=== PATIENT | female | born 1975 | race Caucasian/White ===

== ENCOUNTER 2017-11-22 21:11 | Inpatient (IN) | payer SELFPAY ==
[~2017-11-22] VITALS: Ht 165.1 cm; Wt 71.0 kg
[2017-11-22 21:24] VITALS: BP 123/75; PULSE 47; RESP 16; TEMP 98; O2SAT 95
[2017-11-22] MEDS ORDERED: ONDANSETRON ODT 4 MG TAB PO ONE (21:45)
[2017-11-22] MEDS ORDERED: oxyCODONE/ACETAMINOPHEN 5 MG/325 MG TAB PO ONE (21:45)
--- NOTE | 2017-11-22 22:00 | PD ---
HPI . Right tib-fib fracture Chief Complaint: Fall Time Seen by Provider: 21:44 Travel History International Travel<30 days: No Contact w/Intl Traveler<30days: No Traveled to known affect area: No History of Present Illness HPI Patient was walking and tripped on a loose board and twisted and got her leg stuck and went to [facility] where she was discovered to have a acute comminuted distal tib-fib fracture apparently they wanted to transfer her for orthopedic and trauma to our hospital Dr. De Anda took the call accepted the transfer and the patient is Dr. Morales was made aware as I was informed by Dr. De Anda. Patient has no significant past medical history except possible diagnosis of lupus but is on no medication she had a history of a breast biopsy for a cyst that was benign otherwise she is normal healthy Kinyar[place]-speaking only complaint is tenderness pain in her distal right ankle she has normal cap refill in the toes moving her toes without complication she is in a splint posterior short leg splint pain local no radiation it happened at 3 pm today PFSH Past Medical History Diminished Hearing: No Medical other: Yes (LUPUS) Tetanus Vaccination: Unknown Influenza Vaccination: No ?: Not Past Surgical History Surgical History: No Previous Surgery Other Surgery: Yes (CYST REMOVED FROM LEFT BREAST) Social History Alcohol Use: No Tobacco Use: No Substance Use: No Allergies-Medications (Allergen,Severity, Reaction): Coded Allergies: No Known Allergies (Verified Allergy, Unknown, 11/22/17) Reported Meds & Prescriptions Reported Meds & Active Scripts Active Review of Systems Except as stated in HPI: all other systems reviewed are Neg Musculoskeletal: Positive: Myalgias, Arthralgias Physical Exam Narrative GENERAL: pt is in mild discomfort SKIN: Warm and dry. HEAD: Atraumatic. Normocephalic. EYES: Pupils equal and round. No scleral icterus. No injection or drainage. ENT: No nasal bleeding or discharge. Mucous membranes pink and moist. NECK: Trachea midline. No JVD. CARDIOVASCULAR: Regular rate and rhythm. RESPIRATORY: No accessory muscle use. Clear to auscultation. Breath sounds equal bilaterally. GASTROINTESTINAL: Abdomen soft, non-tender, nondistended. Hepatic and splenic margins not palpable. MUSCULOSKELETAL: Extremities--> Right ankle is splinted short leg cast has Tib fib fracture on report, toes <2sec cap refill FROM toes normal limits.. PSYCHIATRIC: Appropriate mood and affect; insight and judgment normal. Data Data Last Documented VS Vital Signs Date Time Temp Pulse Resp B/P (MAP) Pulse Ox O2 Delivery O2 Flow Rate FiO2 11/22/17 23:10 64 18 133/72 (92) 98 Room Air 11/22/17 21:24 98.0 Orders Orders Oxycodone-Acetamin 5-325 Mg (Percocet (11/22/17 21:45) Ondansetron Odt (Zofran Odt) (11/22/17 21:45) NPO (11/22/17 22:08) Ct Tib/Fib W/O Iv Contrast (11/22/17 ) Sodium Chlor 0.9% 1000 Ml Inj (Ns 1000 M (11/22/17 23:00) Metoclopramide Inj (Reglan Inj) (11/22/17 23:00) Consult Orthopedic (11/22/17 ) Admit To Inpatient (11/22/17 ) Vital Signs (Adult) Q4H (11/22/17 23:12) Activity Oob With Assistance (11/22/17 23:12) Sodium Chloride 0.9% Flush (Ns Flush) (11/22/17 23:15) Sodium Chloride 0.9% Flush (Ns Flush) (11/23/17 09:00) Acetaminophen (Tylenol) (11/22/17 23:15) Scd Bilateral/Knee High VIVIAN.BID (11/22/17 23:12) Naloxone Inj (Narcan Inj) (11/22/17 23:15) Magnesium Hydroxide Liq (Milk Of Magnesi (11/22/17 23:15) Sennosides (Senokot) (11/22/17 23:15) Bisacodyl Supp (Dulcolax Supp) (11/22/17 23:15) Lactulose Liq (Lactulose Liq) (11/22/17 23:15) Inpatient Certification (11/22/17 ) Acetamin-Hydrocod 325-7.5 Mg ([place] 7.5 (11/22/17 23:15) Ondansetron Odt (Zofran Odt) (11/22/17 23:15) MDM Medical Decision Making Medical Screen Exam Complete: Yes Emergency Medical Condition: Yes Medical Record Reviewed: Yes (transfer info from [facility]) Differential Diagnosis fractured tib fib, as well as other possible injury to arms hands wrist other leg , xrays done at other hospital prior to transfer Narrative Course Dr De Anda accepted trauma transfer but on pt arrival to ER he feels it is appropriate for othero consult and orthotics prosthetics assistant splint tonight and admit for hepas for OR in AM . I speak to the Ortho PA for Dr Morales and they want a CT for lower extremity and admit and NPO Diagnosis Primary Impression: Tibia/fibula fracture Qualified Codes: S82.201A - Unspecified fracture of shaft of right tibia, initial encounter for closed fracture; S82.401A - Unspecified fracture of shaft of right fibula, initial encounter for closed fracture Scripts Wheelchair Elevated Leg (Wheelchair Elevated Leg) 1 Mis Mis EA .XX DIRECTED, #1 0 Refills Prov: Juventino Sterling Jr. 11/23/17 Walker with Front Wheels (Walker with Front Wheels) 1 Mis Mis EA .XX DIRECTED, #1 0 Refills Prov: Juventino Sterling Jr. 11/23/17 Hydrocodone-Acetaminophen (Hydrocodone-Acetaminophen) 10-325 mg Tab 1 TAB PO Q4H Y for PAIN, #50 TAB 0 Refills Prov: Juventino Sterling Jr. 11/23/17 Vargas Mason MD November 22, 2017 22:00
[2017-11-22] MEDS ORDERED: METOCLOPRAMIDE INJ 10 MG in SODIUM CHLORIDE 0.9% INJ 50 ML IV ONE (23:00)
[2017-11-22] MEDS ORDERED: SODIUM CHLOR 0.9% 1000 ML INJ 1,000 ML IV ONE (23:00)
[2017-11-22 23:10] VITALS: BP 133/72; PULSE 64; RESP 18; O2SAT 98
[2017-11-22] MEDS ORDERED: ACETAMINOPHEN 325 MG TAB PO PRN (23:15)
[2017-11-22] MEDS ORDERED: LACTULOSE SYRUP 20 GM/30 ML CUP PO PRN (23:15)
[2017-11-22] MEDS ORDERED: BISACODYL 10 MG SUPP RECTAL PRN (23:15)
[2017-11-22] MEDS ORDERED: SODIUM CHLORIDE 0.9% FLUSH 10 ML FLUSH IV FLUSH PRN (23:15)
[2017-11-22] MEDS ORDERED: ONDANSETRON ODT 4 MG TAB PO PRN (23:15)
[2017-11-22] MEDS ORDERED: NALOXONE HCL 0.4 MG/ML AMP IV PUSH PRN (23:15)
[2017-11-22] MEDS ORDERED: MAGNESIUM HYDROXIDE SUSP 30 ML CUP PO PRN (23:15)
[2017-11-22] MEDS ORDERED: SENNOSIDES 8.6 MG TAB PO PRN (23:15)
--- NOTE | 2017-11-22 23:58 | HHI.HP ---
[facility] Service [facility] Primary Care Physician Unknown Admission Diagnosis FRACTURED TIB FIB NEEDS OR Nitesh Diagnoses: Chief Complaint: Fall and right leg pain Travel History International Travel<30 Days: No Contact w/Intl Traveler <30 Da: No Traveled to Known Affected Are: No History of Present Illness Ms. Fagan is a pleasant 42-year-old female with no significant medical history who presents to the emergency department due to a fall and subsequent pain in her right lower extremity. Patient tripped and fell and sustained right ankle pain. She did not have any chest pain, lightheadedness or dizziness prior to her fall. Imaging studies indicated right tib-fib fracture. Dr. Morales has been consulted for possible surgical intervention in the morning. Patient denies any cough, abdominal pain, fever or chills. Review of Systems Except as stated in HPI: all other systems reviewed are Neg Past Family Social History Past Medical History No significant medical history Past Surgical History Cyst removed from left breast. No other major surgical intervention. Reported Medications Does not take any medications on a regular basis Allergies: Coded Allergies: No Known Allergies (Verified Allergy, Unknown, 11/22/17) Family History No family history of heart disease, cancer. Social History Denies using tobacco, alcohol, illicit drugs. Physical Exam Vital Signs Vital Signs Date Time Temp Pulse Resp B/P (MAP) Pulse Ox O2 Delivery O2 Flow Rate FiO2 11/22/17 23:10 64 18 133/72 (92) 98 Room Air 11/22/17 22:10 18 18 98 Room Air 11/22/17 21:24 98.0 47 16 123/75 (91) 95 Room Air Physical Exam GENERAL: This is a well-nourished, well-developed patient, in no apparent distress. SKIN: No rashes, ecchymoses or lesions. Warm and dry. HEAD: Atraumatic. Normocephalic. No temporal or scalp tenderness. EYES: Pupils equal round and reactive. No injection or drainage. ENT: Nose without bleeding, purulent drainage or septal hematoma. Airway patent. NECK: Trachea midline. No lymphadenopathy. Supple, nontender, no meningeal signs. CARDIOVASCULAR: Regular rate and rhythm without murmurs, gallops, or rubs. No JVD. RESPIRATORY: Clear to auscultation. Breath sounds equal bilaterally. No wheezes , rales, or rhonchi. GASTROINTESTINAL: Abdomen soft, non-tender, nondistended. No guarding. MUSCULOSKELETAL: Extremities without clubbing, cyanosis, or edema. Right lower extremity splint in place. Able to move all toes. NEUROLOGICAL: Awake and alert. Cranial nerves II through XII intact. No focal neurological deficits. Normal speech. Imaging Last Impressions Lower Extremity CT 11/22/17 0000 Signed Impressions: CONCLUSION: 1. Comminuted fracture the distal tibia with extension into the ankle joint. 2. Comminuted fracture the distal fibular shaft. Caprini VTE Risk Assessment Caprini VTE Risk Assessment: Mod/High Risk (score >= 2) Caprini Risk Assessment Model Point Value = 1 Point Value = 2 Point Value = 3 Point Value = 5 Age 41-60 Minor surgery BMI > 25 kg/m2 Swollen legs Varicose veins or History of unexplained or recurrent spontaneous Oral contraceptives or hormone replacement Sepsis (< 1 month) Serious lung disease, including pneumonia (< 1 month) Abnormal pulmonary function Acute myocardial infarction Congestive heart failure (< 1 month) History of inflammatory bowel disease Medical patient at bed rest Age 61-74 Arthroscopic surgery Major open surgery (> 45 min) Laparoscopic surgery (> 45 min) Malignancy Confined to bed (> 72 hours) Immobilizing plaster cast Central venous access Age >= 75 History of VTE Family history of VTE Factor V Leiden Prothrombin [id number] Lupus anticoagulant Anticardiolipin antibodies Elevated serum homocysteine Heparin-induced thrombocytopenia Other congenital or acquired thrombophilia Stroke (< 1 month) Elective arthroplasty Hip, pelvis, or leg fracture Acute spinal cord injury (< 1 month) Prophylaxis Regimen Total Risk Factor Score Risk Level Prophylaxis Regimen 0-1 Low Early ambulation 2 Moderate Order ONE of the following: *Sequential Compression Device (SCD) *Heparin 5000 units SQ BID 3-4 Higher Order ONE of the following medications: *Heparin 5000 units SQ TID *Enoxaparin/Lovenox 40 mg SQ daily (WT < 150 kg, CrCl > 30 mL/min) *Enoxaparin/Lovenox 30 mg SQ daily (WT < 150 kg, CrCl > 10-29 mL/min) *Enoxaparin/Lovenox 30 mg SQ BID (WT < 150 kg, CrCl > 30 mL/min) AND/OR *Sequential Compression Device (SCD) 5 or more Highest Order ONE of the following medications: *Heparin 5000 units SQ TID (Preferred with Epidurals) *Enoxaparin/Lovenox 40 mg SQ daily (WT < 150 kg, CrCl > 30 mL/min) *Enoxaparin/Lovenox 30 mg SQ daily (WT < 150 kg, CrCl > 10-29 mL/min) *Enoxaparin/Lovenox 30 mg SQ BID (WT < 150 kg, CrCl > 30 mL/min) AND *Sequential Compression Device (SCD) Assessment and Plan Problem List: (1) Tibia/fibula fracture ICD Code: S82.209A - Unspecified fracture of shaft of unspecified tibia, initial encounter for closed fracture; S82.409A - Unspecified fracture of shaft of unspecified fibula, initial encounter for closed fracture Status: Acute Assessment and Plan Ms. Fagan is a 42-year-old female with a significant medical history who presented to the emergency department after a trip and fall incident where she sustained a distal right-sided tib-fib fracture. Orthopedic surgery was consulted. Right-sided tib-fib fracture -Orthopedic surgery consulted. N.p.o. midnight for surgical intervention in the morning. Acetaminophen, [place] for pain. Full code. SCDs. Pharmacological DVT prophylaxis after surgery if prolonged hospitalization is expected. Physician Certification 2 Midnight Certification Type: Admission for Inpatient Services Order for Inpatient Services The services are ordered in accordance with Medicare regulations or non- Medicare payer requirements, as applicable. In the case of services not specified as inpatient-only, they are appropriately provided as inpatient services in accordance with the 2-midnight benchmark. Estimated LOS (days): 2 days is the estimated time the patient will need to remain in the hospital, assuming treatment plan goals are met and no additional complications. Post-Hospital Plan: Carson Bruno DO November 22, 2017 11:58 pm
[2017-11-23] VITALS (7 sets, daily range): BP systolic 99–156; BP diastolic 56–73; PULSE 55–90; RESP 18; TEMP 97.5–98.5; O2SAT 94–99
--- NOTE | 2017-11-23 00:10 | RADRPT ---
EXAM DATE: 11/22/2017 11:40 PM EDT AGE/SEX: 42 years / Female INDICATIONS: Trauma, fall off curb. CLINICAL DATA: This is the patient's initial encounter. Patient reports that signs and symptoms have been present for 1 day and indicates a pain score of 10/10. MEDICAL/SURGICAL HISTORY: None. None. RADIATION DOSE: 10.91 CTDI (mGy) COMPARISON: No prior [facility] exams available for comparison. TECHNIQUE: Multiple contiguous axial images were acquired using a multirow detector CT scanner witho ut contrast. Multiplanar reconstruction was performed in the sagittal and coronal planes. Using aut omated exposure control and adjustment of the mA and/or kV according to patient size, radiation dose was kept as low as reasonably achievable to obtain optimal diagnostic quality images. FINDINGS: There is comminuted fracturing of the distal tibia and fibula. The main distal tibial frag ment is angulated dorsally. There is a component of this fracture that extends vertically into the an terior aspect of the distal tibia into the ankle joint. There is some medial displacement of the dist al anterior medial fragment at the distal tibia. The displacement in the order of 4 mm. The medial ma lleolus appears intact. The posterior malleolus is intact. The distal fibular fracture primarily invo lves the fibular shaft. The main distal fibular shaft is displaced posteriorly. The metaphyseal regio n and distal aspect of the lateral malleolus are intact. The ankle joint is normally aligned. CONCLUSION: 1. Comminuted fracture the distal tibia with extension into the ankle joint. 2. Comminuted fracture the distal fibular shaft. Electronically signed by: Naeem Neff MD 11/23/2017 12:08 AM EDT
[2017-11-23] MEDS: ACETAMINOPHEN/HYDROcodone 325 MG/7.5 MG TAB PO PRN ×3 (04:36→18:28)
--- NOTE | 2017-11-23 06:43 | PD.ORT.PN ---
Subjective Subjective Remarks Patient had a mechanical fall from a trailer as she stepped down and missed step. She rolled her ankle and had significant pain and was unable to ambulate. No other orthopedic complaints. She is transferred in for fracture management by Dr. Morales for her right tibial pilon. (Juventino Sterling Jr.) Objective Vitals Vital Signs Date Time Temp Pulse Resp B/P (MAP) Pulse Ox O2 Delivery O2 Flow Rate FiO2 11/23/17 02:45 98.5 78 18 115/70 (85) 99 Room Air 11/22/17 23:10 64 18 133/72 (92) 98 Room Air 11/22/17 22:10 18 18 98 Room Air 11/22/17 21:24 98.0 47 16 123/75 (91) 95 Room Air I/O 11/22/17 11/22/17 11/22/17 11/23/17 11/23/17 11/23/17 07:00 15:00 23:00 07:00 15:00 23:00 Intake Total 2154 ml Output Total 270 ml Balance 1884 ml Intake IV Total 2154 ml Output Urine Total 250 ml Emesis 20 ml # Voids 1 (Juventino Sterling Jr.) Imaging Last 72 hours Impressions Lower Extremity CT 11/22/17 0000 Signed Impressions: CONCLUSION: 1. Comminuted fracture the distal tibia with extension into the ankle joint. 2. Comminuted fracture the distal fibular shaft. Objective Remarks Bilateral upper extremities: Full range of motion neurovascularly intact Left lower extremity: Full range of motion and neurovascularly intact Right lower extremity: No pain with hip or knee range of motion. Ankle is splinted. She has intact sensation in all toes with good capillary refills. (Juventino Sterling Jr.) Assessment & Plan Assessment and Plan Right distal tibia and fibula fractures She does not speak Indian. Her is able to translate n.p.o. Surgery this morning for reduction of right distal tibia and external fixation. Swelling is too great for surgical fixation of tibial pilon fracture. We will stage this in 2 separate procedures. Once external fixation and reduction is achieved we will wait for swelling to improve and once it has we will proceed with open reduction internal fixation of the right ankle. It will more than likely take 5-7 days until it is ready for the second surgery. Once external fixation is achieved, remaining at the hospital versus discharge to home and following up in office will be assessed. Sign consents (Juventino Sterling Jr.) Assessment and Plan POD 0 s/p Exfix right distal tibia stable in PACU -NWB -elevate -pin care BID -ortho cleared for DC home on sunday if doing well -f/u in 5-7 days in office for re-eval of surgical fixation with dr Morales (Ayan Garza/Motor Analyst PA) Juventino Sterling Jr. November 23, 2017 06:42 Ayan Garza/Motor Analyst PA November 23, 2017 08:50
[2017-11-23] MEDS ORDERED: HYDR-3583 PO (06:44)
[2017-11-23] MEDS ORDERED: WALKER WHEELS/F1 MIS (06:46)
[2017-11-23] MEDS ORDERED: WHEEMIS3 (06:46)
[2017-11-23] MEDS ORDERED: ceFAZolin INJ 1,000 MG VIAL ONE (06:57)
--- NOTE | 2017-11-23 07:15 | MB ---
cc: Charles Morales MD DATE: 11/23/2017 REASON FOR CONSULTATION: Right distal tibia fracture. HISTORY OF PRESENT ILLNESS: Charlene is a 42-year-old female who lives over near [place]. She was stepping off a trailer. She misjudged the height of the trailer and landed awkwardly on her right leg. She had immediate right ankle pain and swelling. She presented to [facility] first. X-rays revealed intraarticular right distal tibia and fibula fractures. She was subsequently transferred to [place] for definitive treatment of these injuries. She complains only of right ankle pain. The pain is worse with movement and is improved with rest. She denies dizziness, syncope or loss of consciousness. Her is at bedside. Her is fluent in both Kittitian and Belarusian and is assisting with translation. PAST MEDICAL HISTORY: Illnesses: None. SURGERIES: Left breast cyst removal. MEDICATIONS: No medications prior to admission. ALLERGIES: NO KNOWN DRUG ALLERGIES. FAMILY HISTORY: Noncontributory. She denies any history of heart disease or problems with anesthesia. SOCIAL HISTORY: The patient lives with her . She denies alcohol, tobacco or drug use. REVIEW OF SYSTEMS: The patient denies headache, visual changes, neck pain, chest pain, shortness of breath, abdominal pain, nausea, vomiting, recent weight loss, fever of chills. No ____ extremities or bowel or bladder incontinence. She complains of right ankle pain. The pain is worse with movement. LABORATORY DATA: She does not have any labs. IMAGING: CT scan of the right ankle was reviewed. CT scan reveals an intra-articular displaced right distal tibia and fibula fracture. PHYSICAL EXAMINATION: GENERAL: The patient is a well-developed, well-nourished, 42-year-old female. She is awake and alert. She appears well developed, well nourished. She is in no acute distress. VITAL SIGNS: Temperature 98.5, pulse 90, respirations 18, blood pressure 109/60, O2 saturation 96% on room air. HEENT: Head: The patient is normocephalic, atraumatic. Pupils are equal. NECK: Soft, nontender. The trachea is midline. ABDOMEN: Soft, nontender, nondistended. EXTREMITIES: Examination of bilateral upper extremities reveals no pain with shoulder, elbow or wrist motion bilaterally. Skin is intact to both hands: Radial pulses are palpable. Sensation is intact in all fingers. Examination of left leg reveals no pain with hip, knee or ankle motion. Skin is intact. Dorsalis pedis pulses palpable. Examination of right leg reveals no pain with hip or knee motion. She has moderate swelling of the ankle. She is tender to palpation over the distal tibia and fibula. Skin is intact. She has good capillary refill in her toes. IMPRESSION: Right distal tibia and fibula intraarticular fractures. PLAN: Treatment options were discussed with the patient and her . At this point, I would recommend a staged procedure. I would recommend closed reduction and external fixation of her right ankle today. She will need delayed open reduction and internal fixation once swelling has resolved. Risks of surgery include bleeding, infection, injuries to arteries, nerves or blood vessels; nonunion, malunion, painful hardware, wound complications, as well as medical complications including blood clot, stroke, heart attack and . All questions were answered. I will plan on surgery today. A mid-level provider in my office, nurse practitioner or PA, may see this patient on a follow-up basis and continue to implement the objective of this plan including: Starting or adjusting medications, injections of muscle, tendon, bursa or joints, cast application, orthotic or brace application, physical therapy, further radiographic studies including x-ray, MRI, CT, ultrasounds or bone scan, vascular studies, neurologic studies, or other specialist consultations, and proceeding with surgical management as appropriate. MD TAMY Goddard/AMBROSIO , 06:49 AM , 07:15 AM
[2017-11-23] MEDS ORDERED: VANCOMYCIN 1 GM/200 ML INJ 200 ML IV ONE (07:18)
[2017-11-23] MEDS: LACTATED RINGER'S 1000 ML INJ 1,000 ML IV SCH ×2 (08:02→20:32)
[2017-11-23] MEDS ORDERED: ACETAMINOPHEN 1000 MG/100 ML 100 ML IV ONE (08:03)
--- NOTE | 2017-11-23 08:06 | PD.OP ---
cc: Charles Reyes MD Operative Report Date of Surgery: November 23, 2017 Preoperative Diagnosis: Displaced right distal tibia and fibula intra-articular fractures Postoperative Diagnosis: Procedure: Closed reduction with an ablation of right distal tibia and fibula fractures, external fixation right ankle Surgeon: Charles Reyes Seedling Sorter(s): MINISTERIO Steward PA-C The surgical procedure was assisted by my physician assistant to the director. My P.A. presence was necessary throughout this case for the manipulation and positioning of the surgical extremity. My P.A. was assisting me throughout the duration of this procedure. The skill set of a physician assistant to the director was medically necessary to complete this procedure. During the surgical case the surgical assist was working at the back table and the physician assistant to the director was directly assisting me. Operation and Findings: This patient sustained an injury resulting in unstable fractures of the right distal tibia and fibula. Patient was seen and evaluated preoperatively and found to have too much swelling to proceed with open reduction internal fixation. Risk and benefits of surgery were discussed in depth with patient and informed consent was confirmed. Surgical site was marked. Patient was brought to operating room and placed on the OR table. Patient was given IV sedation and GETA. Patient received IV antibiotics and timeout procedure was performed. Operative leg was prepped with alcohol followed by Hibiclens and draped in the usual sterile fashion.resulting in left tibia-fibula fractures. Timeout procedure was performed. The procedure began with placement of external fixation. Two percutaneous incisions were made over the tibia. Pin sites were pre-drilled. Synthes CHIU- coated pins were placed from anterior to posterior in the tibia shaft. An additional transfixion pin was placed through the calcaneus. Pins were also placed in the first and fifth metatarsals. An external fixator was now constructed. Fluoroscopy was used to confirm appropriate pin placement Next attention was turned to traction with manipulation of the leg. The fracture was manipulated under fluoroscopy. Excellent reduction was achieved. With the fracture held in reduced position, the external fixator was tightened. Fluoroscopy confirmed a well-placed external fixation with well-aligned fractures. Sterile dressings were applied. The patient was awakened and transferred to Recovery in stable condition. The soft tissue was reevaluated. Patient did have swelling around the ankle and calf but compartments were soft and compressible with no signs of compartment syndrome. Charles Reyes MD November 23, 2017 08:06
[2017-11-23] MEDS ORDERED: ONDANSETRON ODT 4 MG TAB PO PRN (08:15)
[2017-11-23] MEDS ORDERED: Post-op Orders (for Pharmacy) XX ONE (08:15)
[2017-11-23] MEDS ORDERED: diphenhydrAMINE HCL 25 MG CAP PO PRN (08:15)
[2017-11-23] MEDS ORDERED: ACETAMINOPHEN/HYDROcodone 325 MG/7.5 MG TAB PO PRN (08:15)
[2017-11-23] MEDS ORDERED: MORPHINE SULFATE 4 MG/ML INJ IV PUSH PRN (08:15)
[2017-11-23] MEDS ORDERED: *morphine SULFATE 8 MG/ML PERIprocedure ONLY ONE ×3 (08:38→09:05)
[2017-11-23] MEDS ORDERED: DO NOT ADM ANY ANTICOAGULANT DRUGS PRN (08:45)
--- NOTE | 2017-11-23 08:51 | HHI.FF ---
Face to Face Verification Diagnosis: (1) Tibia/fibula fracture Physical Therapy Gait training Right LE Weight Bearing: Non WB Left LE Weight Bearing: WB as tolerated Nursing Nursing: Teach and assist BID pin care I have seen patient Charlene Fagan on 11/23/17. My clinical findings support the need for the requested home health care services because: Ltd mobility - disease progression I certify that my clinical findings support that this patient is homebound because: Post-op weakness Ayan Garza/Bowling Ball Grader And Marker ARELIS November 23, 2017 08:51
[2017-11-23] MEDS: SODIUM CHLORIDE 0.9% FLUSH 10 ML FLUSH IV FLUSH SCH ×2 (09:00→21:32)
--- NOTE | 2017-11-23 10:44 | HHI.PR ---
Subjective Remarks Feels tired. Resting after surgery. Objective Vitals Vital Signs Date Time Temp Pulse Resp B/P (MAP) Pulse Ox O2 Delivery O2 Flow Rate FiO2 11/23/17 10:06 97.5 64 18 114/73 (87) 98 11/23/17 09:15 70 16 121/76 (91) 94 Nasal Cannula 2 11/23/17 09:00 66 16 122/68 (86) 100 Nasal Cannula 2 11/23/17 08:45 68 16 124/80 (95) 100 Nasal Cannula 2 11/23/17 08:30 75 18 119/75 (90) 100 Nasal Cannula 2 11/23/17 08:18 97.8 74 23 117/72 (87) 99 Nasal Cannula 2 11/23/17 06:43 90 18 109/60 (76) 96 Room Air 11/23/17 02:45 98.5 78 18 115/70 (85) 99 Room Air 11/22/17 23:10 64 18 133/72 (92) 98 Room Air 11/22/17 22:10 18 18 98 Room Air 11/22/17 21:24 98.0 47 16 123/75 (91) 95 Room Air I/O 11/22/17 11/22/17 11/22/17 11/23/17 11/23/17 11/23/17 07:00 15:00 23:00 07:00 15:00 23:00 Intake Total 2154 ml 300 ml Output Total 270 ml 5 ml Balance 1884 ml 295 ml Intake IV Total 2154 ml Other 300 ml Output Urine Total 250 ml Emesis 20 ml Estimated Blood Loss 5 ml # Voids 2 Objective Remarks GENERAL: This is a well-nourished, well-developed patient, in no apparent distress. CARDIOVASCULAR: Regular rate and rhythm RESPIRATORY: Clear to auscultation. Breath sounds equal bilaterally. No wheezes , rales, or rhonchi. GASTROINTESTINAL: Abdomen soft, non-tender, nondistended. Normal active bowel sounds MUSCULOSKELETAL: Right lower extremity bandage in place with external fixator in place A/P Problem List: (1) Tibia/fibula fracture ICD Code: S82.209A - Unspecified fracture of shaft of unspecified tibia, initial encounter for closed fracture; S82.409A - Unspecified fracture of shaft of unspecified fibula, initial encounter for closed fracture Status: Acute Assessment and Plan Ms. Fagan is a 42-year-old Burmese speaking female with a significant medical history who presented to the emergency department after a trip and fall incident where she sustained a distal right-sided tib-fib fracture. Orthopedic surgery, Dr. Morales was consulted. Right-sided distal tib-fib fracture status post operative of ablation of the right distal tib-fib fracture with external fixator with orthopedic surgery, Dr. Morales today who recommended continue postoperative care with neck surgery likely in 5-7 days pending patient's hospital course. Continue physical therapy and pain control. DVT prophylaxis Lovenox discussed with at bedside Discharge Planning For orthopedic surgery possibility of discharge home prior to her next surgery with external fixator depending on hospital clinical course Problem Qualifiers (1) Tibia/fibula fracture: Qualified Codes: S82.201A - Unspecified fracture of shaft of right tibia, initial encounter for closed fracture; S82.401A - Unspecified fracture of shaft of right fibula, initial encounter for closed fracture Keshia Chappell MD November 23, 2017 10:44
[2017-11-23] MEDS: KETOROLAC TROMETHAMINE 30 MG/ML (IVP) VIAL IVP SCH ×2 (14:19→21:32)
[2017-11-23] MEDS ORDERED: PROPOFOL 200 MG/20 ML AMP IV ONE (17:48)
[2017-11-23] MEDS ORDERED: LIDOCAINE HCL 1% PF 5 ML SYRINGE OTHER ONE (17:48)
[2017-11-23] MEDS ORDERED: SUCCINYLCHOLINE CHLORIDE 100 MG/5 ML SYRINGE IV PUSH ONE (17:48)
[2017-11-23] MEDS ORDERED: ROCURONIUM INJ 50 MG/5 ML SYRINGE IV PUSH ONE (17:48)
[2017-11-23] MEDS ORDERED: ONDANSETRON HCL 4 MG/2 ML VIAL IV PUSH ONE (17:48)
[2017-11-23] MEDS ORDERED: DEXAMETHASONE SOD PHOS 4 MG/ML VIAL IV ONE (17:48)
--- NOTE | 2017-11-23 22:17 | RADRPT ---
EXAM DATE: 11/23/2017 9:13 PM EDT AGE/SEX: 42 years / Female INDICATIONS: ex fix Ankle done in operating room CLINICAL DATA: This is the patient's subsequent encounter. Patient reports that signs and symptoms h ave been present for 1 day and indicates a pain score of Nonresponsive. MEDICAL/SURGICAL HISTORY: Non-responsive. Non-responsive. COMPARISON: No prior [facility] exams available for comparison. FINDINGS: 3 images are recorded digitally in the operating room using C-arm during external fixation of distal tibia and fibula fractures. CONCLUSION: Intraoperative images. Electronically signed by: Deandre Dunn MD 11/23/2017 10:16 PM EDT
[2017-11-24 04:25] VITALS: BP 100/59; PULSE 65; RESP 18; TEMP 97.9; O2SAT 98
[2017-11-24 05:02] LABS: HEMATOCRIT 36.8 % (35.0-46.0); HEMOGLOBIN 12.7 GM/DL (11.6-15.3)
[2017-11-24] MEDS: KETOROLAC TROMETHAMINE 30 MG/ML (IVP) VIAL IVP SCH ×2 (06:50→14:52)
[2017-11-24] MEDS ORDERED: ENOXAPARIN SODIUM 40 MG/0.4 ML SYRINGE SQ SCH (07:00)
--- NOTE | 2017-11-24 07:43 | PD.ORT.PN ---
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 Objective Vitals Vital Signs Date Time Temp Pulse Resp B/P (MAP) Pulse Ox O2 Delivery O2 Flow Rate FiO2 11/24/17 04:25 97.9 65 18 100/59 (73) 98 11/23/17 23:55 98.2 61 18 99/56 (70) 98 11/23/17 20:45 98.2 55 18 114/65 (81) 98 11/23/17 16:23 97.7 72 18 156/66 (96) 94 11/23/17 12:30 97.6 74 18 104/57 (73) 99 11/23/17 10:06 97.5 64 18 114/73 (87) 98 11/23/17 09:15 70 16 121/76 (91) 94 Nasal Cannula 2 11/23/17 09:00 66 16 122/68 (86) 100 Nasal Cannula 2 11/23/17 08:45 68 16 124/80 (95) 100 Nasal Cannula 2 11/23/17 08:30 75 18 119/75 (90) 100 Nasal Cannula 2 11/23/17 08:18 97.8 74 23 117/72 (87) 99 Nasal Cannula 2 I/O 11/23/17 11/23/17 11/23/17 11/24/17 11/24/17 11/24/17 07:00 15:00 23:00 07:00 15:00 23:00 Intake Total 2154 ml 300 ml 660 ml 420 ml Output Total 270 ml 5 ml Balance 1884 ml 295 ml 660 ml 420 ml Intake Oral 660 ml 420 ml IV Total 2154 ml Other 300 ml Output Urine Total 250 ml Emesis 20 ml Estimated Blood Loss 5 ml # Voids 2 1 3 # Bowel Movements 0 Result Diagram: 11/24/17 0438 Imaging Last 72 hours Impressions Lower Extremity CT 11/22/17 0000 Signed Impressions: CONCLUSION: 1. Comminuted fracture the distal tibia with extension into the ankle joint. 2. Comminuted fracture the distal fibular shaft. Objective Remarks right lower extremity is in ex fix pin sites clean swelling Assessment & Plan Assessment and Plan POD #1 s/p Exfix right distal tibia stable in PACU -NWB -elevate -pin care BID -ortho cleared for discharge home today, advised to call office [facility] to speak to [facility] staff -f/u in 5-7 days in office for re-eval of surgical fixation with Bertrand Monreal MD November 24, 2017 07:43
[2017-11-24 08:00] VITALS: BP 101/62; PULSE 66; RESP 18; TEMP 98.3; O2SAT 97
[2017-11-24] MEDS: SODIUM CHLORIDE 0.9% FLUSH 10 ML FLUSH IV FLUSH SCH (09:00)
[2017-11-24] MEDS: LACTATED RINGER'S 1000 ML INJ 1,000 ML IV SCH (09:02)
[2017-11-24 12:00] VITALS: BP 95/57; PULSE 77; RESP 16; TEMP 98.3; O2SAT 98
--- NOTE | 2017-11-24 15:44 | HHI.DS ---
Discharge Summary Admission Date November 22, 2017 at 23:15 Discharge Date: November 24, 2017 Admitting Diagnosis FRACTURED TIB FIB NEEDS OR Nitesh (1) Tibia/fibula fracture ICD Code: S82.209A - Unspecified fracture of shaft of unspecified tibia, initial encounter for closed fracture; S82.409A - Unspecified fracture of shaft of unspecified fibula, initial encounter for closed fracture Status: Acute Procedures open repair with external pin fixation of right ankle Brief History - From Admission Ms. Fagan is a pleasant 42-year-old female with no significant medical history who presents to the emergency department due to a fall and subsequent pain in her right lower extremity. Patient tripped and fell and sustained right ankle pain. She did not have any chest pain, lightheadedness or dizziness prior to her fall. Imaging studies indicated right tib-fib fracture. Dr. Morales has been consulted for possible surgical intervention in the morning. Patient denies any cough, abdominal pain, fever or chills. CBC/BMP: 11/24/17 0438 Significant Findings Laboratory Tests Test 11/24/17 04:38 PE at Discharge GENERAL: This is a well-nourished, well-developed patient, in no apparent distress. CARDIOVASCULAR: Regular rate and rhythm RESPIRATORY: Clear to auscultation. Breath sounds equal bilaterally. No wheezes , rales, or rhonchi. GASTROINTESTINAL: Abdomen soft, non-tender, nondistended. Normal active bowel sounds MUSCULOSKELETAL: Right lower extremity bandage in place with external fixator in place Hospital Course This is a 42-year-old female with no major medical issues who tripped and fell 2 days ago suffering a comminuted fracture to both her distal right tibia and fibula. She underwent surgical repair with external pins placed. Her pain has been well controlled since surgery and she has no signs of compartment syndrome , no excessive pain, no nausea from pain meds. She is comfortable with the idea of going home and both her and herself will be educated on wound care, specifically pin care. She has a follow-up with orthopedics this Sunday. She will have subsequent follow-ups with orthopedics. She was unable to be qualified for home health visit due to her distance from the hospital and her lack of funding. She is instructed to keep her foot elevated, avoid weightbearing on the right foot, and follow-up as instructed. Pt Condition on Discharge: Good Discharge Disposition: Discharge Home Discharge Time: <= 30 minutes Discharge Instructions DIET: Follow Instructions for: As Tolerated, No Restrictions Activities you can perform: Non Weight Bearing Bon Olmos MD November 24, 2017 15:44
--- NOTE | 2017-11-27 01:08 | RADRPT ---
EXAM DATE: 11/23/2017 9:40 AM EDT AGE/SEX: 42 years / Female INDICATIONS: Right ankle pain. Fracture. CLINICAL DATA: This is the patient's initial encounter. Patient reports that signs and symptoms have been present for 1 day and indicates a pain score of Nonresponsive. MEDICAL/SURGICAL HISTORY: None. . External fixator RADIATION DOSE: 10.91 CTDI (mGy) COMPARISON: No prior exams available for comparison. TECHNIQUE: Multiple contiguous axial images were acquired using a multirow detector CT scanner witho ut contrast. Multiplanar reconstruction was performed in the sagittal and coronal planes. Using aut omated exposure control and adjustment of the mA and/or kV according to patient size, radiation dose was kept as low as reasonably achievable to obtain optimal diagnostic quality images. FINDINGS: There are complete fractures of distal tibia and fibula with multiple displaced bony fragments and no significant angulation, however the fracture fragments are slightly base. The tibial fracture extend s intra-articularly into the tibiotalar joint. External fixation screws traverse the calcaneus and fi fth metatarsal bone. There is extensive soft tissue swelling. CONCLUSION: 1. Intra-articular distal tibial fracture and comminuted distal fibular fracture. Electronically signed by: Jf Guardado MD 11/27/2017 1:06 AM EDT
== END 2017-11-24 17:49 | disposition home or self-care (01) | DRG 494 ==
LOC: NEPE 21:11 → NEDA 23:15 → NEDH 11-23 03:15 → N06B 11-23 09:56
PROVIDERS: ADMIT Family Medicine; ATTEND Family Medicine
PROC: 0QSJ35Z Reposition Right Fibula with External Fixation Device, Percutaneous Approach (ICD-10-PCS; 2017-11-23)
PROC: 0QSG35Z Reposition Right Tibia with External Fixation Device, Percutaneous Approach (ICD-10-PCS; principal; 2017-11-23 07:25)
DX: S82.871A Displaced pilon fracture of right tibia, initial encounter for closed fracture (principal); S82.831A Other fracture of upper and lower end of right fibula, initial encounter for closed fracture; R60.0 Localized edema; W01.0XXA Fall on same level from slipping, tripping and stumbling without subsequent striking against object, initial encounter
CPT/HCPCS: 73600; 73700; 76000; 85014; 85018; 94150; 96374; C1713; J0131; J0330; J0690; J1100; J1650; J1885; J2270; J2405; J2765; J3010; J3370; J7030; J7120

== ENCOUNTER 2017-12-11 06:48 | Inpatient (IN) | payer OTHER ==
[~2017-12-11] VITALS: Ht 165.1 cm; Wt 70.5 kg
[~2017-12-11 06:48] MED LIST: HYDR-3583 PO; IBUP1TAB5 PO
[2017-12-11] MEDS ORDERED: POVIDONE IODINE 5% (ANTISEPSIS KIT) 4 APPLICATIONS EACH NARE PRN (07:30)
[2017-12-11] MEDS ORDERED: CHLORHEXIDINE GLUCONATE 2 % 1 PACK (2 CLOTHS) TOPICAL PRN (07:30)
[2017-12-11] MEDS ORDERED: VANCOMYCIN 1000 MG/NS 250 ML (for <70 kg) IV SCH ×2 (07:30)
[2017-12-11] MEDS ORDERED: LACTATED RINGER'S 1000 ML IV PRN (07:30)
[2017-12-11] MEDS ORDERED: CHLORHEXIDINE GLUCONATE 4% SOLN 120 ML BTL TOPICAL SCH (07:30)
[2017-12-11] MEDS ORDERED: ceFAZolin 2 GM PREMIX 50 ML IV SCH (07:30)
[2017-12-11] MEDS ORDERED: SODIUM CHLORID 0.9% 500 ML IV PRN (07:30)
[2017-12-11] MEDS ORDERED: METOPROLOL TARTRATE 25 MG TAB PO PRN (07:30)
[2017-12-11] MEDS ORDERED: VANCOMYCIN 1 GM/200 ML INJ 200 ML IV SCH (07:45)
[2017-12-11] MEDS ORDERED: GENTAMICIN SULFATE 80 MG/2 ML VIAL ONE (09:06)
[2017-12-11] MEDS ORDERED: diphenhydrAMINE HCL 25 MG CAP PO PRN (11:30)
[2017-12-11] MEDS ORDERED: NALOXONE HCL 0.4 MG/ML AMP IV PUSH PRN (11:30)
[2017-12-11] MEDS ORDERED: ONDANSETRON ODT 4 MG TAB PO PRN (11:30)
[2017-12-11] MEDS ORDERED: ACETAMINOPHEN/HYDROcodone 325 MG/10 MG TAB PO PRN (11:30)
[2017-12-11] MEDS ORDERED: MORPHINE SULFATE 4 MG/ML INJ IV PUSH PRN (11:30)
[2017-12-11] MEDS ORDERED: Post-op Orders (for Pharmacy) XX ONE (11:30)
[2017-12-11] MEDS ORDERED: HYDR-3366 PO (11:32)
--- NOTE | 2017-12-11 11:36 | PD.OP ---
cc: Charles Reyes MD Operative Report Date of Surgery: Dec 11, 2017 Preoperative Diagnosis: Comminuted right distal tibia and fibula fractures Postoperative Diagnosis: Procedure: Removal of external fixation, open reduction internal fixation of right distal tibia and fibula fractures Anesthesia: General Surgeon: Charles Reyes Bridal Stylist Sales Consultant(s): Ayan Garza PA-C The surgical procedure was assisted by my physician community assistant. My P.A. presence was necessary throughout this case for the manipulation and positioning of the surgical extremity. My P.A. was assisting me throughout the duration of this procedure. The skill set of a physician community assistant was medically necessary to complete this procedure. During the surgical case the surgical instruments inspector was working at the back table and the physician community assistant was directly assisting me. Operation and Findings: Charlene previously sustained an injury resulting in comminuted right distal tibia and fibular fractures. She was initially treated with external fixation and closed reduction. Informed consent was obtained for open reduction and internal fixation of distal tibia fracture. Soft tissue was evaluated preoperatively and found to be suitable for surgery. Patient was brought to the operating placed on operating room table. Patient was given IV sedation and general anesthesia. Timeout procedure was performed, and IV antibiotics were given prior to procedure. The operative leg was now prepped with alcohol followed by Hibiclens and draped usual sterile fashion. Procedure began with a 4 inch incision over the distal fibula fracture. Subcutaneous tissue was dissected with Bovie. Fracture site was visualized. Fracture site was cleaned with curettes. Fracture was manipulated. There was comminution of the fracture. Fracture fragments keyed in excellent alignment. K wires were used to hold provisional fixation. Next attention was turned towards the distal tibia. A 5 inch incision was now made over the medial aspect of the ankle. Saphenous vein was protected. A full thickness flap was now elevated. The distal medial tibia was now exposed. Attention was now turned towards reduction. The articular surface fragments were reduced first. A pointed tenaculum was used to reduce the anterior and posterior fragments. Fracture reduced and excellent alignment. Using 2 small anterior incisions, 4.0 cannulated screws were placed from anterior to posterior. Good compression was obtained. Next the metaphyseal fragments were reduced. Traction was applied and fracture fragments were manipulated. There were multiple metaphyseal fragments. These were manipulated in excellent reduction was achieved. Fracture tenaculums were used to reduce fractures. Multiple K wires were used to hold provisional fixation. Fluoroscopy confirmed excellent alignment of fractures. A Synthes medial distal tibial plate was selected. Plate was placed percutaneously along the medial aspect of the distal tibia. Plate was provisionally held to bone with K wires. 2.7 cortical screws and 3.5 cortical screws were used to compress plate to bone. Multiple screws were placed into the shaft. Multiple 2.7 locking screws were placed into the distal segment. All screws were predrilled and premeasured for appropriate lengths. Attention was now turned back towards the fibula. A one third tubular plate was selected. Plate was provisionally held both K wires. 3.5 cortical screws were used to compress plate to bone. Multiple screws were placed above and below fracture. K wires were removed. Final fluoroscopy revealed well aligned fracture with well-placed hardware. The wound was now thoroughly irrigated. Subcutaneous tissues closed with 3-0 Vicryl and skin was closed with 3-0 nylon. Sterile dressings were applied with Xeroform 4 x 4's soft roll and a well- padded splint.. Needle and sponge counts were correct. Patient was transferred to recovery room in stable condition. Charles Reyes MD Dec 11, 2017 11:36
[2017-12-11] MEDS ORDERED: ROPIVACAINE 0.5% PF INJ 30 ML VIAL ONE ×2 (11:40→12:18)
[2017-12-11] MEDS ORDERED: MIDAZOLAM HCL 2 MG/2 ML VIAL ONE (11:41)
[2017-12-11] MEDS ORDERED: ONDANSETRON HCL 4 MG/2 ML VIAL IV ONE (12:00)
[2017-12-11] MEDS ORDERED: GLYCOPYRROLATE 1 MG/5 ML SYRINGE IV PUSH ONE (12:00)
[2017-12-11] MEDS ORDERED: LIDOCAINE HCL 1% PF 5 ML SYRINGE OTHER ONE (12:00)
[2017-12-11] MEDS ORDERED: LACTATED RINGER'S 1000 ML INJ 1,000 ML IV ONE (12:00)
[2017-12-11] MEDS ORDERED: PROPOFOL 200 MG/20 ML AMP IV ONE (12:00)
[2017-12-11] MEDS ORDERED: ROCURONIUM INJ 50 MG/5 ML SYRINGE IV PUSH ONE (12:00)
[2017-12-11] MEDS ORDERED: NEOSTIGMINE 5 MG/5 ML SYRINGE IV PUSH ONE (12:00)
[2017-12-11] MEDS ORDERED: KETOROLAC TROMETHAMINE 30 MG/ML (IVP) VIAL IV PUSH ONE (12:00)
[2017-12-11] MEDS ORDERED: DEXAMETHASONE SOD PHOS 4 MG/ML VIAL IV ONE (12:00)
[2017-12-11] MEDS ORDERED: DO NOT ADM ANY ANTICOAGULANT DRUGS PRN (12:11)
[2017-12-11] MEDS ORDERED: *MEPERIDINE 25 MG INJ VIAL PERIprocedural Use ONLY ONE (12:14)
[2017-12-11] MEDS ORDERED: *morphine SULFATE 4 MG/ML PERIprocedure ONLY ONE (12:17)
--- NOTE | 2017-12-11 13:21 | RADRPT ---
EXAM DATE: 12/11/2017 12:56 PM EDT AGE/SEX: 42 years / Female INDICATIONS: Removal external fixation. Open reduction internal fixation right ankle. CLINICAL DATA: This is the patient's initial encounter. Patient reports that signs and symptoms have been present for 1 day and indicates a pain score of Nonresponsive. MEDICAL/SURGICAL HISTORY: Non-responsive. Non-responsive. COMPARISON: [facility] [place]KLE RIGHT LIMITED ([facility]), 11/23/2017. . FINDINGS: 2 views of the right ankle demonstrates postsurgical changes following open reduction and internal fi xation of comminuted distal tibial and fibular fractures. Extra medullary plates have been applied al johan the distal tibia and fibula. Multiple fixation screws are noted. 2 fixation screws have also been placed anteriorly into the distal tibia. There is satisfactory anatomic alignment of the fracture fragments. Ankle mortise appears to be well maintained. CONCLUSION: Satisfactory appearance of the left ankle following ORIF. Electronically signed by: Ismael Ferguson MD 12/11/2017 1:19 PM EDT
[2017-12-11 13:30] VITALS: BP 115/69; PULSE 75; RESP 18; TEMP 97.5; O2SAT 99
[2017-12-11] MEDS: CALCIUM/VITAMIN D 250 MG/125 U TAB PO SCH ×2 (13:45→17:40)
[2017-12-11] MEDS: KETOROLAC TROMETHAMINE 30 MG/ML (IVP) VIAL IVP SCH ×2 (13:46→21:03)
[2017-12-11 15:24] VITALS: O2SAT 99
[2017-12-11 16:35] VITALS: BP 114/57; PULSE 75; RESP 17; TEMP 97.4; O2SAT 99
[2017-12-11] MEDS: ceFAZolin 2 GM PREMIX 50 ML IV SCH (17:48)
[2017-12-11 19:55] VITALS: O2SAT 98
[2017-12-11 20:00] VITALS: BP 96/56; PULSE 82; RESP 18; TEMP 98.4; O2SAT 98
[2017-12-11] MEDS: VANCOMYCIN INJ 1,000 MG in SODIUM CHLOR 0.9% 250 ML INJ 250 ML IV SCH (21:03)
[2017-12-11] MEDS: ACETAMINOPHEN/HYDROcodone 325 MG/7.5 MG TAB PO PRN (21:19)
[2017-12-12] VITALS: BP 95/51; PULSE 87; RESP 16; TEMP 98.4; O2SAT 98
[2017-12-12] MEDS: ceFAZolin 2 GM PREMIX 50 ML IV SCH ×2 (01:49→08:47)
[2017-12-12 04:00] VITALS: BP 95/55; PULSE 62; RESP 18; TEMP 98.4; O2SAT 98
[2017-12-12] MEDS: KETOROLAC TROMETHAMINE 30 MG/ML (IVP) VIAL IVP SCH ×2 (05:09→11:23)
[2017-12-12] MEDS: LACTATED RINGER'S 1000 ML INJ 1,000 ML IV SCH ×2 (05:09→08:56)
--- NOTE | 2017-12-12 06:46 | PD.ORT.PN ---
Subjective Subjective Remarks POD 1 s/p ORIF right distal tibia fx doing well. pain controlled. no new complaints. Objective Vitals Vital Signs Date Time Temp Pulse Resp B/P (MAP) Pulse Ox O2 Delivery O2 Flow Rate FiO2 12/12/17 04:00 98.4 62 18 95/55 (68) 98 12/12/17 00:00 98.4 87 16 95/51 (66) 98 12/11/17 20:00 98.4 82 18 96/56 (69) 98 12/11/17 19:55 98 21 12/11/17 17:48 18 12/11/17 16:35 97.4 75 17 114/57 (76) 99 12/11/17 15:24 99 Nasal Cannula 1.00 12/11/17 14:46 18 12/11/17 13:30 97.5 75 18 115/69 (84) 99 12/11/17 12:55 74 16 124/69 (87) 99 Nasal Cannula 2 12/11/17 12:45 74 16 124/69 (87) 99 Nasal Cannula 2 12/11/17 12:30 75 16 130/69 (89) 100 Nasal Cannula 2 12/11/17 12:10 98.0 79 16 136/75 (95) 99 Nasal Cannula 2 12/11/17 07:46 97.7 65 20 110/71 (84) 95 I/O 12/11/17 12/11/17 12/11/17 12/12/17 12/12/17 12/12/17 07:00 15:00 23:00 07:00 15:00 23:00 Intake Total 1000 ml 560 ml 480 ml Output Total 100 ml 400 ml Balance 900 ml 560 ml 80 ml Intake Oral 560 ml 480 ml Other 1000 ml Output Urine Total 400 ml Estimated Blood Loss 100 ml # Voids 1 2 # Bowel Movements 0 Objective Remarks RLE: dressings clean and dry. intact. NVI Assessment & Plan Assessment and Plan 1) Right Distal Tibia/Fibula Fxs s/p ORIF - POD 1 -NWB -maintain splint at all times -elevate -keep clean and dry -DC home today -f/u with [facility] or PA in 2 weeks Ayan Garza/Warp Tying Machine Knotter PA Dec 12, 2017 06:46
--- NOTE | 2017-12-12 07:13 | HHI.DS ---
Discharge Summary Admission Date Dec 11, 2017 at 06:48 Discharge Date: Dec 12, 2017 Admitting Diagnosis Right distal tibia and fibula fractures Diagnosis: (1) Tibia/fibula fracture Diagnosis: Principal ICD Codes: S82.209A - Unspecified fracture of shaft of unspecified tibia, initial encounter for closed fracture; S82.409A - Unspecified fracture of shaft of unspecified fibula, initial encounter for closed fracture Status: Acute Procedures Removal of external fixator with open reduction internal fixation of right distal tibia and fibula fractures PE at Discharge RLE: dressings clean and dry. intact. NVI Hospital Course Patient was admitted for outpatient basis for removal of external fixator with open reduction internal fixation of right distal tibia and fibula fractures. She was a trauma that came into the hospital 2-3 weeks ago. She previously undergone external fixation. Her swelling was functioning suitable level or proceeding with definitive fixation was acceptable. She tolerated the procedure well and was admitted to [facility]. By postop day 1, her pain was well controlled she was hemodynamically stable. She will work with therapy today and walker training. She will be discharged home today. She will remain nonweightbearing and maintain the splint at all times. She will keep it clean and dry. She will elevate leg. She will follow-up on an outpatient basis in [address] Morales or his PA Pt Condition on Discharge: Good Discharge Disposition: Discharge Home Discharge Instructions Diet Instructions: As Tolerated, No Restrictions Activities You Can Perform: Non Weight Bearing Follow up Referrals: Orthopedics - 2 Weeks @ [facility] with Charles Morales MD New Medications: Hydrocodone-Acetaminophen ([place]) 10-325 Mg Tab 1 TAB PO Q4H PRN for PAIN, #60 TAB 0 Refills Ayan Garza/Floor Layer Helper PA Dec 12, 2017 07:13
[2017-12-12 08:27] VITALS: BP 97/55; PULSE 67; RESP 16; TEMP 98.3; O2SAT 99
[2017-12-12] MEDS: ACETAMINOPHEN/HYDROcodone 325 MG/7.5 MG TAB PO PRN (08:51)
[2017-12-12] MEDS: CALCIUM/VITAMIN D 250 MG/125 U TAB PO SCH ×2 (08:51→11:23)
[2017-12-12] MEDS: VANCOMYCIN INJ 1,000 MG in SODIUM CHLOR 0.9% 250 ML INJ 250 ML IV SCH (09:04)
[2017-12-12 10:30] VITALS: O2SAT 99
[2017-12-12] MEDS ORDERED: ENOXAPARIN SODIUM 40 MG/0.4 ML SYRINGE SQ SCH (11:00)
== END 2017-12-12 11:53 | disposition home or self-care (01) | DRG 494 ==
LOC: HSDI 06:48 → N06A 13:12
PROVIDERS: ADMIT Orthopaedic Surgery Orthopaedic Trauma; ATTEND Orthopaedic Surgery Orthopaedic Trauma
PROC: 0QSJ04Z Reposition Right Fibula with Internal Fixation Device, Open Approach (ICD-10-PCS; 2017-12-11)
PROC: 0QPGX5Z Removal of External Fixation Device from Right Tibia, External Approach (ICD-10-PCS; 2017-12-11)
PROC: 3E0T3BZ Introduction of Anesthetic Agent into Peripheral Nerves and Plexi, Percutaneous Approach (ICD-10-PCS; 2017-12-11)
PROC: 0QSG04Z Reposition Right Tibia with Internal Fixation Device, Open Approach (ICD-10-PCS; principal; 2017-12-11 09:57)
DX: S82.301A Unspecified fracture of lower end of right tibia, initial encounter for closed fracture (principal); S82.831A Other fracture of upper and lower end of right fibula, initial encounter for closed fracture; X58.XXXA Exposure to other specified factors, initial encounter; Y93.9 Activity, unspecified
CPT/HCPCS: 73600; 76000; 94150; C1713; J0690; J1100; J1580; J1650; J1885; J2175; J2250; J2270; J2405; J2710; J2795; J3010; J3370; J7050; J7120